=== PATIENT | female | born 1970 | race Caucasian/White ===

== ENCOUNTER → 2016-08-31 | Outpatient (CLI) | payer OTHER ==
--- NOTE | 2016-09-04 12:46 | MM ---
Reason for exam: screening (asymptomatic). Last mammogram was performed 1 year and 5 months ago. History: Patient is postmenopausal. Took hormonal contraceptives for 3 years beginning at age 25. Physical Findings: A clinical breast exam by your physician is recommended on an annual basis and results should be correlated with mammographic findings. MG 3D Screening Mammo W/Cad Bilateral CC and MLO view(s) were taken. Prior study comparison: April 09, 2015, bilateral MG screening mammo w CAD. September 24, 2013, CAD bilateral diagnostic mammogram. The breast tissue is heterogeneously dense. This may lower the sensitivity of mammography. Finding: There is a 8.1 mm equal round mass in the right breast, 5.4 cm from nipple. No significant changes in finding since April 09, 2015 and September 24, 2013. ASSESSMENT: Incomplete: need additional imaging evaluation, BI-RAD 0 RECOMMENDATION: Ultrasound of the right breast. [facility] will attempt to contact patient to return for ultrasound.
== END | disposition home or self-care (01) ==
LOC: RADMAMWWP 10:10
PROVIDERS: ATTEND Family Medicine
DX: Z12.31 Encounter for screening mammogram for malignant neoplasm of breast (principal)
CPT/HCPCS: 77063; G0202

== ENCOUNTER → 2016-09-13 | Outpatient (CLI) | payer OTHER ==
--- NOTE | 2016-09-13 10:00 | USB ---
Reason for exam: additional evaluation requested from abnormal screening. History: Patient is postmenopausal. Took hormonal contraceptives for 3 years beginning at age 25. Physical Findings: Nurse Summary: bilateral breast tenderness with exam, all soft, nodular, movable (nurse ts). US Breast Workup Limited RT Right breast ultrasound demonstrates three oval, cystic lesions measuring 1.6 x 1.6 x 1.2cm at 9 o'clock, 0.9 x 1.1 x 0.5cm at 10 o'clock and 0.7 x 0.5 x 0.5cm at 10 o'clock. All benign and compatible with the mammographic finding. These results were verbally communicated with the patient and result sheet given to the patient on 09/13/16. ASSESSMENT: Benign, BI-RAD 2 RECOMMENDATION: Return to routine screening mammogram schedule for both breasts.
== END | disposition home or self-care (01) ==
LOC: RADUSWWP 08:53
PROVIDERS: ATTEND Family Medicine
DX: R92.8 Other abnormal and inconclusive findings on diagnostic imaging of breast (principal)

== ENCOUNTER → 2017-04-24 | Outpatient (CLI) | payer OTHER ==
--- NOTE | 2017-04-24 14:11 | CT ---
EXAMINATION TYPE: CT abdomen pelvis w con DATE OF EXAM: 04/24/2017 HISTORY: Upper abdominal pain CT DLP: 1404mGycm Automated Exposure Control for Dose Reduction was Utilized. CONTRAST: CT scan of the abdomen and pelvis is performed with IV Contrast, patient injected with 100 mL of Omni paque 300. COMPARISON: 10/16/2013 FINDINGS: LUNG BASES: Bibasilar subsegmental dependent atelectasis is present.. LIVER/GB: The liver contains a single 3 mm hypoattenuated hepatic lesion that is too small to accurat hyacinth characterize within the inferior right hepatic lobe on series 3 image 28 in segment 5. Remainder the hepatic parenchyma enhances homogeneously. No ductal dilatation. Gallbladder surgically absent wi th cholecystectomy clips in the gallbladder fossa. No common bile duct dilatation.. PANCREAS: The pancreas is of normal enhancement and morphology without ductal dilatation. Few areas o f focal fat are seen within the inferior hepatic parenchymal body. SPLEEN: Spleen is unremarkable in morphology. ADRENALS: Adrenal glands are symmetric and unremarkable. KIDNEYS: Kidneys enhance symmetrically. No evidence of hydronephrosis. BOWEL: Appendix is within normal limits of size and partially air-filled. UTERUS/ADNEXA: Uterus is surgically absent. Surgical clips are seen around the right adnexa and there is redemonstration of numerous follicles within the right ovary as seen on the prior exam of 10/17/19 14. LYMPH NODES: No greater than 1cm abdominal or pelvic lymph nodes are appreciated. OSSEOUS STRUCTURES: Acetabular sclerotic bone island is unchanged from the prior of 2013 on the right . Minimal degenerative changes of the lower thoracic spine are noted. OTHER: Minimal atherosclerotic changes are seen of the abdominal aorta and its branches. IMPRESSION: 1. No CT finding is seen to account for patient's clinical symptoms. 2. Numerous right ovarian follicles, as seen on the prior exam of 2013. 3. Too small to accurately characterize single hypoattenuated 3 mm hepatic lesion.
== END | disposition home or self-care (01) ==
LOC: RADCTMAIN 12:50
PROVIDERS: ATTEND Surgery Plastic and Reconstructive Surgery
DX: K76.9 Liver disease, unspecified (principal); K86.1 Other chronic pancreatitis
CPT/HCPCS: 74177; Q9967

== ENCOUNTER → 2017-05-24 | Outpatient (CLI) | payer OTHER ==
[2017-05-24 14:27] LABS: CH 33.3; CHCM 33.5; HCT 48.1 % (34.0-46.0); HDW 2.15; HGB 15.8 gm/dL (11.4-16.0); MCH 32.9 pg (25.0-35.0); MCHC 32.9 g/dL (31.0-37.0); MCV 99.7 fL (80.0-100.0); Mean Platelet Volume 8.4; RBC 4.82 m/uL (3.80-5.40); RDW 13.3 % (11.5-15.5); WBC 15.8 k/uL (3.8-10.6)
== END | disposition home or self-care (01) ==
LOC: LABPAT 13:49
PROVIDERS: ATTEND Surgery Plastic and Reconstructive Surgery
DX: Z01.812 Encounter for preprocedural laboratory examination (principal); K44.9 Diaphragmatic hernia without obstruction or gangrene
CPT/HCPCS: 36415; 85027

== ENCOUNTER → 2017-06-08 | Outpatient (CLI) | payer OTHER ==
[~2017-06-08] MED LIST: DEXAMETHASONE SOD PHOSPHATE 10 MG/ML 1 ML VIAL IV ONE; SODIUM CHLORIDE 0.9% 500 ML in EMPTY BAG 1 BAG IV PRN
[2017-06-08 09:59] VITALS: BP 105/63; PULSE 83; RESP 15; TEMP 97.9
== END | disposition home or self-care (01) ==
LOC: PROCWHC3 09:23
PROVIDERS: ATTEND Surgery Plastic and Reconstructive Surgery
DX: L50.0 Allergic urticaria (principal)
CPT/HCPCS: 96374; J1100

== ENCOUNTER → 2018-05-22 | Outpatient (CLI) | payer OTHER ==
[2018-05-22 11:28] LABS: ALT 20 U/L (9-52); AST 16 U/L (14-36); Albumin 4.3 g/dL (3.5-5.0); Alkaline Phosphatase 52 U/L (38-126); Anion Gap 9 mmol/L; Blood Urea Nitrogen 7 mg/dL (7-17); Calcium 9.4 mg/dL (8.4-10.2); Carbon Dioxide 23 mmol/L (22-30); Chloride 107 mmol/L (98-107); Cholesterol 144 mg/dL (<200); Glucose 113 mg/dL (74-99); HDL Cholesterol 30 mg/dL (40-60); LDL Cholesterol,Calculated 96 mg/dL (0-99); Potassium 4.3 mmol/L (3.5-5.1); Sodium 139 mmol/L (137-145); Total Bilirubin 0.3 mg/dL (0.2-1.3); Total Protein 7.4 g/dL (6.3-8.2); Triglycerides 92 mg/dL (<150)
[2018-05-22 12:23] LABS: Basophils % (A) 0 %; Eosinophils # (A) 0.1 k/uL (0-0.7); Eosinophils % (A) 1 %; HCT 47.1 % (34.0-46.0); HGB 15.5 gm/dL (11.4-16.0); Lymphocytes # (A) 2.8 k/uL (1.0-4.8); Lymphocytes % (A) 32 %; MCHC 32.8 g/dL (31.0-37.0); MCV 97.5 fL (80.0-100.0); Mean Platelet Volume 8.1; Monocytes # (A) 0.5 k/uL (0-1.0); Monocytes % (A) 5 %; Neutrophils # (A) 5.1 k/uL (1.3-7.7); Neutrophils % (A) 60 %; Platelet Count 282 k/uL (150-450); RBC 4.84 m/uL (3.80-5.40); RDW 11.8 % (11.5-15.5); WBC 8.5 k/uL (3.8-10.6)
--- NOTE | 2018-05-22 14:27 | MM ---
Reason for exam: screening (asymptomatic). Last mammogram was performed 1 year and 9 months ago. History: Patient is postmenopausal. Took hormonal contraceptives for 3 years beginning at age 25. Physical Findings: A clinical breast exam by your physician is recommended on an annual basis and results should be correlated with mammographic findings. MG 3D Screening Mammo W/Cad Bilateral CC and MLO view(s) were taken. Prior study comparison: August 31, 2016, bilateral MG 3d screening mammo w/cad. April 09, 2015, bilateral MG screening mammo w CAD. Finding: There is a 30 mm circumscribed round mass in the upper quadrant, middle position of the left breast and a second 14mm round lesion posterior left breast upper aspect. There is a chronic nodularity bilaterally. Increase in size since August 31, 2016 and April 09, 2015. ASSESSMENT: Incomplete: need additional imaging evaluation, BI-RAD 0 RECOMMENDATION: Ultrasound of the left breast. [facility] will attempt to contact patient to return for ultrasound. NIKO
== END | disposition home or self-care (01) ==
LOC: RADMAMWWP 09:35
PROVIDERS: ATTEND Family Medicine
DX: Z12.31 Encounter for screening mammogram for malignant neoplasm of breast (principal); Z13.1 Encounter for screening for diabetes mellitus; Z13.0 Encounter for screening for diseases of the blood and blood-forming organs and certain disorders involving the immune mechanism; Z13.220 Encounter for screening for lipoid disorders
CPT/HCPCS: 36415; 77063; 77067; 80053; 80061; 84443; 85025

== ENCOUNTER → 2018-06-07 | Outpatient (CLI) | payer OTHER ==
--- NOTE | 2018-06-07 09:58 | USB ---
Reason for exam: additional evaluation requested from abnormal screening. History: Patient is postmenopausal. Took hormonal contraceptives for 3 years beginning at age 25. Physical Findings: Nurse Summary: left breast palpabled 12 o'clock/1 o'clock, 1 x 2cm, 2 x 2cm, all soft, movable (nurse ts). US Breast Workup Limited LT Left limited breast ultrasound including focal area of concern, retroareolar and axilla demonstrates a 2.0 x 0.7 x 1.8cm oval, cystic lesion at 12 o'clock BB, a 1.4 x 0.5 x 1.3cm mixed, vascular cluster at 1 o'clock for which a 6 month follow up is recommended and a 1.3 x 0.7 x 1.2cm oval, cystic lesion at 3 o'clock. Multiple cystic areas visualized. These results were verbally communicated with the patient and result sheet given to the patient on 06/07/18. ASSESSMENT: Probably benign, BI-RAD 3 RECOMMENDATION: Follow-up diagnostic mammogram of the left breast in 6 months.
== END ==
LOC: RADUSWWP 08:49
PROVIDERS: ATTEND Family Medicine
DX: R92.8 Other abnormal and inconclusive findings on diagnostic imaging of breast (principal)

== ENCOUNTER → 2018-11-20 | Outpatient (CLI) | payer OTHER ==
--- NOTE | 2018-11-20 11:26 | MM ---
Reason for exam: follow-up at short interval from prior study. Last mammogram was performed 6 months ago. History: Patient is postmenopausal. Family history of breast cancer in paternal aunt at age 50. Took hormonal contraceptives for 3 years beginning at age 25. Physical Findings: Nurse Summary: 1 x 1.5cm nodule in the left breast 1 o'clock and 2 o'clock (nurse ts). MG 3D Diag Mammo W/Cad LT CC and MLO view(s) were taken of the left breast. Prior study comparison: May 22, 2018, bilateral MG 3d screening mammo w/cad. August 31, 2016, bilateral MG 3d screening mammo w/cad. Finding #1: There are multiple masses in the left breast. Finding #2: There are typically benign calcifications in the left breast. These results were verbally communicated with the patient and result sheet given to the patient on 11/20/18. ASSESSMENT: Incomplete: need additional imaging evaluation, BI-RAD 0 RECOMMENDATION: Ultrasound of the left breast.
--- NOTE | 2018-11-20 11:29 | USB ---
Reason for exam: additional evaluation requested from abnormal screening. History: Patient is postmenopausal. Family history of breast cancer in paternal aunt at age 50. Took hormonal contraceptives for 3 years beginning at age 25. US Breast Limited LT Left limited breast ultrasound including focal area of concern, retroareolar and axilla demonstrates a 2.4 x 1.0 x 2.3cm oval, cystic lesion at 12 o'clock, a 1.3 x 0.4 x 1.2cm cystic cluster at 1 o'clock and a 1.7 x 0.9 x 1.5cm oval, cystic lesion at 2 o'clock BB. Multiple cystic area visualized. Lymph nodes visualized in axilla. These results were verbally communicated with the patient and result sheet given to the patient on 11/20/18. ASSESSMENT: Probably benign, BI-RAD 3 RECOMMENDATION: Follow-up diagnostic mammogram of both breasts in 6 months.
== END | disposition home or self-care (01) ==
LOC: RADMAMWWP 09:31
PROVIDERS: ATTEND Family Medicine
DX: R92.8 Other abnormal and inconclusive findings on diagnostic imaging of breast (principal)
CPT/HCPCS: 77061; 77065

== ENCOUNTER → 2019-01-08 | Outpatient (CLI) | payer OTHER ==
[2019-01-08 15:30] VITALS: BP 108/69; PULSE 69; RESP 18; TEMP 98.3; BMI 25.7
--- NOTE | 2019-01-08 15:49 | P.GSHP ---
History of Present Illness H&P Date: 01/08/19 Chief Complaint: lump in left breast Dianna is a 48-year-old white female with a known history of fibrocystic breast disease. Her last bilateral mammogram was in May 2018. At that time there was a 30 mm round mass in the upper quadrant middle position of the left breast, and a second 14 mm round lesion posterior left breast upper aspect. There was chronic nodularity bilaterally. The patient was recommended to undergo an ultrasound of her left breast. Ultrasound of the left breast at that time revealed multiple cystic lesions felt to be most likely benign and repeat mammogram of the left breast in 6 months was recommended. In June 2018 she had a 2 cm cystic lesion at 12:00, 1.4 cm mixed cluster at 1:00 for which six- month follow-up was recommended, and a 1.3 cm cystic lesion at 3:00. The patient had a repeat left breast mammogram performed in November 2018. This revealed multiple masses in the left breast and an ultrasound was recommended. The patient then underwent an ultrasound which revealed a 2.4 cm cystic lesion at 12:00, 1.3 cm cystic cluster at 1:00, and 1.7 cm cystic lesion at 2:00. The results were felt to be probably benign BIRADS 3 and follow-up diagnostic mammogram of both breasts in 6 months was recommended. The patient continues to feel nodularity in the left breast. The patient states that the nodules in her breast have been persistent they do not come and go. She has never had any aspirated. She experiences pain with the nodules. She does not feel any nodules in the left breast. The patient drinks coffee about 5 cups/day. She smokes less than a pack of cigarettes per day. She is not exposed to secondhand smoke. She does not eat chocolate on a regular basis. Family history: 1. paternal aunt: uterine caner Hormonal history: Menarche: 14 , bresat fed: yes, first born at 23 menopause: hysterectomy 11 years ago, took one ovary, done for bleeding the remaining one has cyst BCP: 2 years hormones: none Past surgical history: 1. Hysterectomy with one ovary removed 2. tonsils and Adenoids Medical history: 1. Hiatal hernia 2. Restless leg syndrome 3. Arthritis 4. Fibromyalgia Social History: smoke: 26 years alcohol: none drugs: none - Constitutional Constitutional: Denies chills, Denies fever - EENT Eyes: denies blurred vision, denies pain Ears: deny: decreased hearing, tinnitus Ears, nose, mouth and throat: Reports headache, Denies sore throat - Breasts Breasts: bilateral: as per HPI - Cardiovascular Cardiovascular: Denies chest pain, Denies shortness of breath - Respiratory Comment: smoker - Gastrointestinal Gastrointestinal: Denies abdominal pain, Denies diarrhea, Denies nausea, Denies vomiting - Genitourinary (Female) Genitourinary: Denies dysuria, Denies hematuria - Menstruation Menstruation: Reports post hysterectomy - Musculoskeletal Musculoskeletal: Reports myalgias - Integumentary Integumentary: Denies pruritus, Denies rash - Neurological Neurological: Denies numbness, Denies weakness - Psychiatric Psychiatric: Reports depression, Denies anxiety - Endocrine Endocrine: Reports fatigue, Denies weight change - Hematologic/Lymphatic Comment: none - Allergic/Immunologic Allergic/Immunologic: Reports seasonal allergies Past Medical History Past Medical History: GERD/Reflux Additional Past Medical History / Comment(s): HIATAL HERNIA History of Any Multi-Drug Resistant Organisms: None Reported Past Surgical History: Adenoidectomy, Cholecystectomy, Hysterectomy, Tonsillectomy, Tubal Ligation, Uterine Ablation Additional Past Surgical History / Comment(s): EGD Past Anesthesia/Blood Transfusion Reactions: No Reported Reaction Smoking Status: Never smoker - Past Family History Sister(s) Family Medical History: Cancer Mother Family Medical History: No Reported History Medications and Allergies Home Medications Medication Instructions Recorded Confirmed Type Citalopram Hydrobromide [CeleXA] 40 mg PO HS 05/15/17 01/08/19 History lamoTRIgine [LaMICtal] 100 mg PO HS 05/15/17 01/08/19 History rOPINIRole HCL 0.5 mg PO HS 05/15/17 01/08/19 History Allergies Allergy/AdvReac Type Severity Reaction Status Date / Time No Known Allergies Allergy Verified 01/08/19 15:18 Surgical - Exam BMI 25.7 - General well developed, well nourished, no distress - Eyes normal ocular movement - ENT no hearing loss, no congestion - Neck no masses, trachea midline - Respiratory normal respiratory effort, clear to auscultation - Cardiovascular Rhythm: regular Heart Sounds: normal: S1, S2 - Abdomen Abdomen: soft, non tender, no guarding, no rigid, no rebound - Integumentary normal turgor - Neurologic no disoriented, no combative - Musculoskeletal normal gait, normal posture - Psychiatric oriented to time, oriented to person, oriented to place, speech is normal, memory intact breast exam: Right breast: Multi-positional exam dense breast with fibrocystic changes, no discrete mass Right axilla: No adenopathy of concern Left breast: Dense breast with fibrocystic change, increased nodularity at 1 to 2 o'clock position felt to be a cystic cluster painful to palpation Left axilla: No adenopathy of concern Results mammogram and ultrasound results reviewed Assessment and Plan Assessment: Impression: 1. Hiatal hernia 2. Restless leg syndrome 3. Arthritis 4. Fibromyalgia 5. Mastodynia 6. Fibrocystic breast changes 7. Probable cystic cluster upper outer quadrant left breast I discussed with Dianna decreasing her caffeine intake, and stopping smoking. We have discussed that both of these things will aggravate fibrocystic breast disease. We've also discussed possible ultrasound-guided aspiration of the cystic lesions that are present as I cannot feel any well enough to aspirate otherwise. At this time she is going to consider decreasing her caffeine and nicotine intake. She does not wish for any needle aspiration of cysts. She is recommended to have repeat bilateral mammogram in 6 months time with left breast ultrasound as well. Plan: 1. Encouraged to stop caffeine and nicotine intake 2. Patient given option of needle aspiration of cystic lesions wishes to forego this at the present time 3. Repeat bilateral mammogram and left breast ultrasound in 6 months time with physician exam at that time CC: Carolyn Alfred N.P., Dr. Del Real
== END | disposition home or self-care (01) ==
LOC: WWCWWP 14:52
PROVIDERS: ATTEND Surgery
DX: Z53.9 Procedure and treatment not carried out, unspecified reason (principal)

== ENCOUNTER → 2019-05-22 | Outpatient (CLI) | payer OTHER ==
--- NOTE | 2019-05-23 10:12 | MM ---
Reason for exam: follow-up at short interval from prior study. Last mammogram was performed 6 months ago. History: Patient is postmenopausal. Family history of breast cancer in maternal cousin and breast cancer in paternal aunt at age 50. Took hormonal contraceptives for 3 years beginning at age 25. Physical Findings: Nurse Summary: 1cm nodule in the right breast at 11 o'clock, a 1.5cm nodule in the left breast at 12 o'clock, a 1cm nodule in the left breast at 12 o'clock and a 1cm nodule in the left breast at 2 o'clock (nurse mj). MG 3D Diag Mammo W/Cad JOLLY Bilateral CC and MLO view(s) were taken. Prior study comparison: November 20, 2018, left breast MG 3d diag mammo w/cad LT. May 22, 2018, bilateral MG 3d screening mammo w/cad. August 31, 2016, bilateral MG 3d screening mammo w/cad. April 09, 2015, bilateral MG screening mammo w CAD. September 24, 2013, CAD bilateral diagnostic mammogram. August 23, 2012, CAD bilateral diagnostic mammogram. The breast tissue is heterogeneously dense. This may lower the sensitivity of mammography. There are numerous bilateral round oval circumscribed masses predominantly of the upper outer quadrants bilaterally. The fluxuate is size in comparison to priors and mammographically are most compatible with cysts. Ultrasound will be performed of the left for follow up and right upper outer quadrant for increased size of the right upper outer quadrant masses. These results were verbally communicated with the patient and result sheet given to the patient on 05/22/19. ASSESSMENT: Incomplete: need additional imaging evaluation, BI-RAD 0 RECOMMENDATION: Ultrasound of both breasts.
--- NOTE | 2019-05-23 10:41 | USB ---
Reason for exam: additional evaluation requested from abnormal screening. History: Patient is postmenopausal. Family history of breast cancer in maternal cousin and breast cancer in paternal aunt at age 50. Took hormonal contraceptives for 3 years beginning at age 25. US Breast Limited BILAT Right limited breast ultrasound including focal area of concern, retroareolar and axilla demonstrates a 1.9 x 1.7 x 1.2cm oval, cystic lesion at 12 o'clock, a 0.4 x 0.4 x 0.3cm oval, complex, cystic lesion at 12 o'clock BB likely complicated cyst, 6 month follow up, a 2.7 x 2.6 x 1.4cm oval, cystic lesion at 9 o'clock, a 0.4 x 0.6 x 0.5cm oval, complex, cystic lesion at 9 o'clock likely complicated deep cyst, 6 month follow up recommended and a 2.0 x 1.7 x 1.3cm oval, cystic lesion at 10 o'clock. Left complete breast ultrasound includes all four quadrants, the retroareolar region and axilla. Finding demonstrates a 2.4 x 2.5 x 1.3cm oval, cystic lesion at 12 o'clock, a 0.9 x 1.3 x 0.9cm oval, cystic lesion at 2 o'clock, a 0.6 x 0.7 x 0.3cm oval, complex, cystic lesion at 2 o'clock likely complicated cyst, 6 month follow up, a 0.3 x 0.3 x 0.2cm oval, complex, cystic lesion at 5 o'clock likely complicated cyst, 6 month follow up, a duct at 7 o'clock, a 1.3 x 1.9 x 1.0cm lymph node at the axilla and a 1.6 x 1.6 x 1.0cm oval, cystic lesion at 3 o'clock. These results were verbally communicated with the patient and result sheet given to the patient on 05/22/19. ASSESSMENT: Probably benign, BI-RAD 3 RECOMMENDATION: Ultrasound of both breasts in 6 months.
== END | disposition home or self-care (01) ==
LOC: RADMAMWWP 13:29
PROVIDERS: ATTEND Surgery
DX: R92.8 Other abnormal and inconclusive findings on diagnostic imaging of breast (principal)
CPT/HCPCS: 77062; 77066

== ENCOUNTER → 2019-12-24 | Outpatient (CLI) | payer OTHER ==
--- NOTE | 2019-12-24 11:24 | USB ---
Reason for exam: follow-up at short interval from prior study. History: Patient is postmenopausal. Family history of breast cancer in maternal cousin and breast cancer in paternal aunt at age 50. Took hormonal contraceptives for 3 years beginning at age 25. Physical Findings: Nurse Summary: Patient complains of pain, bilateral pain comes and goes for years, worse on the left breast. Palpable movable lump left breast 2 o'clock, right breast 9 o'clock, nodular bilaterally (nurse TM). US Breast Limited BILAT Right limited breast ultrasound including focal area of concern, retroareolar and axilla demonstrates a 5 x 4 x 6mm oval, mixed lesion at 9 o'clock stable or decreased in size, likely debris filled cyst, a 36 x 12 x 23mm oval, cystic lesion at 9 o'clock BB and a 3 x 2 x 3mm oval, cystic lesion at 12 o'clock. Right limited breast ultrasound including focal area of concern, retroareolar and axilla demonstrates a 9 x 8 x 10mm oval, cystic lesion at 2 o'clock, a 9 x 5 x 7mm lobular, cystic lesion at 3 o'clock and a 6mm oval lymph node at the axilla. Fibrocystic change. These results were verbally communicated with the patient and result sheet given to the patient on 12/24/19. ASSESSMENT: Benign, BI-RAD 2 RECOMMENDATION: Follow-up diagnostic mammogram of both breasts in 5 months. Back on schedule for May 2020.
== END | disposition home or self-care (01) ==
LOC: RADUSWWP 09:41
PROVIDERS: ATTEND Surgery
DX: R92.8 Other abnormal and inconclusive findings on diagnostic imaging of breast (principal)

== ENCOUNTER → 2020-01-01 | Outpatient (CLI) | payer OTHER ==
[2020-01-01 09:55] VITALS: BP 108/70; PULSE 75; RESP 18; TEMP 97.9
--- NOTE | 2020-01-01 10:29 | P.PN ---
Subjective Progress Note Date: 01/01/20 Principal diagnosis: fibrocystic breast disease Dianna is a 48-year-old white female initially seen in January 2019 with nodularity in her left breast. Radiographs at that time revealed no masses in the left breast and ultrasound was recommended. The patient underwent an ul trasound which revealed 2.4 cm cystic lesion at 12:00, 1.3 cm cystic cluster at 1:00, and 1.7 cm cystic lesion at 2:00. These results were felt to be probably benign BIRADS 3 and follow-up diagnostic mammogram of both breasts in 6 months time was recommended. The patient continued to feel nodularity in both breasts, however the left side was worse than the right. The nodularity was smooth in nature there were no spiculated masses or lesions. The location of the nodularity was greatest in the upper outer quadrant. This had intermittently been occurring for approximately 20 years. It had gotten progressively worse over the last few years. The patient had a bilateral mammogram performed on 05/1919 this revealed numerous bilateral round or oval circumscribed masses predominantly in the upper outer quadrants bilaterally. Fluctuation in size was noted compared to prior mammograms and felt to be most compatible with cyst. Ultrasound of both breasts was recommended. Right breast ultrasound done on 05-22-20 revelaed 1.9 cm cystic lesion at 12:00, a 0.4 cm complex cystic lesion at 12:00, 6 month follow-up was recommended for this a 2.7 cm cystic lesion at 9:00, 8.4 cm cystic complex lesion at 9:00 likely complicated deep cystic smooth follow-up recommended 2 cm of the cystic lesion at 10:00 Left breast ultrasound 05-22-20 reveald 2.4 cm cystic lesion at 12:00 0.9 cm cystic lesion at 2:00 0.66 cm complex cystic lesion at 2:00 6 month follow-up recommended 0.3 cm complex cystic lesion at 5:00 6 month follow-up recommended a 1.3 x 1.9 cm lymph node in the axilla and a 1.6 x 1 cm cystic lesion at 3:00 the findings on the left breast for which follow-up was recommended including those at 5 and 6:00 overall bilateral ultrasound in 6 months is recommended Her repeat bilateral ultrasound was done on 12-24-19 This revealed fibrocystic change and repeat mammogram of both breast in 5 months recommended. Patient experiences discomfort in her breast with pressure. The discomfort is in the upper outer quadrant areas greater on the left side. This has been ongoing since her last exam, it has not changed. She does not know anything that makes it better or worse. Complain of any new lumps masses or nodules in her breast. She does not complain of any nipple discharge or skin changes. She has no recent history of trauma or infection of the breast. There is nothing she is aware of that has made it worse. She did have a hysterectomy approximately 11 years ago and one ovary was removed. She has one remaining ovary. She may well be perimenopausal at this time. The patient had a bilateral mammogram performed on 05/1919 this revealed numerous bilateral round or oval circumscribed masses predominantly in the upper outer quadrants bilaterally. Fluctuation in size was noted compared to prior mammograms and felt to be most compatible with cyst. Ultrasound of both breasts was recommended. Caffeine: down to 3 cups of coffee/day from 5 cups Nicotine: Approximately a pack per day she is not exposed to secondhand smoke Theophylline: Decreased chocolate intake Hormones: She is not taking any hormones but may well be perimenopausal; FSH level from June 2019 was 11.2 and LH level .3 (postmenopausal female FSH level 16.7-113.6 postmenopausal luteinizing hormone level 15.9-54) Family history: 1. paternal aunt: uterine caner Hormonal history: Menarche: 14 , bresat fed: yes, first born at 23 menopause: hysterectomy 11 years ago, took one ovary, done for bleeding the remaining one has cyst BCP: 2 years hormones: none Past surgical history: 1. Hysterectomy with one ovary removed 2. tonsils and Adenoids Medical history: 1. Hiatal hernia 2. Restless leg syndrome 3. Arthritis 4. Fibromyalgia 5. fatigue Social History: smoke: 27 years alcohol: none drugs: none - Constitutional Constitutional: Denies chills, Denies fever - EENT Eyes: denies blurred vision, denies pain Ears: deny: decreased hearing, tinnitus Ears, nose, mouth and throat: Reports headache, Denies sore throat - Breasts Breasts: bilateral: as per HPI - Cardiovascular Cardiovascular: Denies chest pain, Denies shortness of breath - Respiratory Comment: smoker - Gastrointestinal Gastrointestinal: Denies abdominal pain, Denies diarrhea, Denies nausea, Denies vomiting - Genitourinary (Female) Genitourinary: Denies dysuria, Denies hematuria - Menstruation Menstruation: Reports post hysterectomy - Musculoskeletal Musculoskeletal: Reports myalgias - Integumentary Integumentary: Denies pruritus, Denies rash - Neurological Neurological: Denies numbness, Denies weakness - Psychiatric Psychiatric: Reports depression, Denies anxiety - Endocrine Endocrine: Reports fatigue, Denies weight change - Hematologic/Lymphatic Comment: none - Allergic/Immunologic Allergic/Immunologic: Reports seasonal allergies Objective - Vital Signs Vital signs: Vital Signs Temp 97.9 F 01/01/20 09:52 Pulse 75 01/01/20 09:52 Resp 18 01/01/20 09:52 BP 108/70 01/01/20 09:52 Pulse Ox 98 01/01/20 09:52 Intake & Output 12/31/19 01/01/20 01/01/20 18:59 06:59 18:59 Weight 69.853 kg - Constitutional General appearance: Present: average body habitus - EENT Eyes: Present: EOMI ENT: Present: hearing grossly normal - Neck Neck: Present: normal ROM - Musculoskeletal Musculoskeletal: Present: gait normal - Psychiatric Psychiatric: Present: A&O x's 3, appropriate affect, intact judgment & insight - Additional findings Additional findings: BREAST : patient refused exam today Assessment and Plan Assessment: Impression: 1. Fibrocystic breast changes as her ultrasound results and per prior exams 2. Stable mastodynia 3. Patient consumes caffeine/is a smoker Plan: 1. Repeat bilateral mammogram; 5 months physician exam at that time 2. Again have counseled patient regarding caffeine and nicotine exposure patient will try to modify lifestyle CC: Dr. Del Real. Carolyn Alfred encounter 15 minutes, > 50% of time in planning and counselling
== END | disposition home or self-care (01) ==
LOC: WWCWWP 09:45
PROVIDERS: ATTEND Surgery
DX: R53.82 Chronic fatigue, unspecified (principal)
CPT/HCPCS: 36415; 84439; 84443; 84481

== ENCOUNTER → 2022-02-24 | Outpatient (CLI) | payer OTHER ==
--- NOTE | 2022-02-24 10:00 | MM ---
Reason for Exam: Follow-up at short interval from prior study. Last mammogram was performed 2 year(s) and 9 month(s) ago. Patient History: Menarche at age 15. First Full-Term at age 25. Left ovary removed at age 35. Hysterectomy at age 35. Postmenopausal. Hormonal Contraceptives, starting at age 25 for 3 years. Maternal cousin had breast cancer. Paternal aunt had breast cancer, age 50. Risk Values: Gracia 5 year model risk: 0.8%. NCI Lifetime model risk: 8.2%. Prior Study Comparison: 10/04/2001 Bilateral Diagnostic Mammogram, [facility]. 10/04/2001 Left Diagnostic Ultrasound, [facility]. 04/13/2009 Bilateral Diagnostic Mammogram, [facility]. 04/13/2009 Left Diagnostic Ultrasound, [facility]. 09/16/2009 Left Diagnostic Ultrasound, [facility]. 08/23/2012 Bilateral Diagnostic Mammogram, [facility]. 08/23/2012 Bilateral Diagnostic Ultrasound, [facility]. 03/19/2013 Bilateral Diagnostic Ultrasound, [facility]. 09/24/2013 Bilateral Diagnostic Mammogram, [facility]. 09/24/2013 Bilateral Diagnostic Ultrasound, [facility]. 04/09/2015 Bilateral Screening Mammogram, [facility]. 04/20/2015 Bilateral Diagnostic Ultrasound, [facility]. 08/31/2016 Bilateral Screening Mammogram, [facility]. 09/13/2016 Right Diagnostic Ultrasound, [facility]. 05/22/2018 Bilateral Screening Mammogram, [facility]. 06/07/2018 Left Diagnostic Ultrasound, [facility]. 11/20/2018 Left Diagnostic Mammogram, [facility]. 11/20/2018 Left Diagnostic Ultrasound, [facility]. 05/22/2019 Bilateral Diagnostic Mammogram, [facility]. 05/22/2019 Bilateral Diagnostic Ultrasound, [facility]. 12/24/2019 Bilateral Diagnostic Ultrasound, [facility]. Tissue Density: The breast tissue is heterogeneously dense. This may lower the sensitivity of mammography. Findings: Analyzed By CAD. Multiple masses demonstrated within both breasts which appear increased in size and number from prior examination. These are equal density with round oval circumscribed appearance. With the number and size, these are favored to represent cysts. Overall Assessment: Incomplete: need additional imaging evaluation, BI-RAD 0 Management: Diagnostic Breast Ultrasound of both breasts. A clinical breast exam by your physician is recommended on an annual basis and results should be correlated with mammographic findings. This exam should not preclude additional follow-up of suspicious palpable abnormalities. Results were given to the patient verbally at the time of exam. Electronically signed and approved by: Fausto Eric D.O.
--- NOTE | 2022-02-24 10:37 | USB ---
Reason for Exam: Additional evaluation requested from prior study. Patient History: Menarche at age 15. First Full-Term at age 25. Left ovary removed at age 35. Hysterectomy at age 35. Postmenopausal. Hormonal Contraceptives, starting at age 25 for 3 years. Maternal cousin had breast cancer. Paternal aunt had breast cancer, age 50. Risk Values: Gracia 5 year model risk: 0.8%. NCI Lifetime model risk: 8.2%. Technique: Method: Whole Breast Handheld. Prior Study Comparison: 05/22/2018 Bilateral Screening Mammogram, [facility]. 11/20/2018 Left Diagnostic Mammogram, [facility]. 05/22/2019 Bilateral Diagnostic Mammogram, [facility]. Findings: The whole breast of both breasts, the axilla of both breasts and the retroareolar of both breasts were scanned. A complete US of all four quadrants of both breasts and retro-areolar region were reviewed. Multiple simple appearing cysts demonstrated within both breasts with no internal vascularity or solid component. Examples include a 2.5 x 1.2 x 2.1 cm cyst in the right breast at 2:00 2 cm from the nipple. 3.1 x 0.8 x 2.9 cm cyst in the right breast at 9:00 4 cm from the nipple. 3.5 x 1.2 x 3.0 cm cyst within left breast at 1:00 3 cm from the nipple. Benign-appearing lymph node in the left axilla with cortical thickness of 2 mm. This measures 0.7 cm short axis. Overall Assessment: Benign, BI-RAD 2 Management: Screening Mammogram of both breasts in 1 year. A clinical breast exam by your physician is recommended on an annual basis and results should be correlated with mammographic findings. Electronically signed and approved by: Fausto Eric D.O.
== END | disposition home or self-care (01) ==
LOC: RADMAMWWP 09:21
PROVIDERS: ATTEND Family Medicine
DX: N60.01 Solitary cyst of right breast (principal); Z78.0 Asymptomatic menopausal state; Z80.3 Family history of malignant neoplasm of breast
CPT/HCPCS: 77062; 77066

== ENCOUNTER → 2024-10-06 | Outpatient (CLI) | payer OTHER ==
--- NOTE | 2024-10-06 11:44 | MM ---
Reason for Exam: Screening (asymptomatic). Last mammogram was performed 1 year(s) and 6 month(s) ago. Patient History: Menarche at age 15. First Full-Term at age 25. Left ovary removed at age 35. Hysterectomy at age 35. Postmenopausal. Hormonal Contraceptives, starting at age 25 for 3 years. Maternal cousin had breast cancer at or over age 50. Paternal aunt had breast cancer, age 50. Risk Values: Gracia 5 year model risk: 0.9%. NCI Lifetime model risk: 7.8%. Prior Study Comparison: 11/20/2018 Left Diagnostic Mammogram, [facility]. 05/22/2019 Bilateral Diagnostic Mammogram, [facility]. 02/24/2022 Bilateral MG 3D diag mammo w/cad JOLLY, [facility]. Tissue Density: The breasts are heterogeneously dense, which may obscure small masses. Findings: Analyzed By CAD. Right breast: Stable benign masses. There is no suspicious group of microcalcifications or new suspicious mass. Left breast: Stable benign masses. There is no suspicious group of microcalcifications or new suspicious mass. Right breast: Benign masses redemonstrated. There is no suspicious group of microcalcifications or new suspicious mass. Left breast: Benign masses redemonstrated. There is no suspicious group of microcalcifications or new suspicious mass. Overall Assessment: Benign, BI-RAD 2 Management: Screening Mammogram of both breasts in [address] [facility] will attempt to contact patient to return for supplemental views and ultrasound if indicated. Patient should continue monthly self-breast exams. A clinical breast exam by your physician is recommended on an annual basis. This exam should not preclude additional follow-up of suspicious palpable abnormalities. Note on Gracia scores and lifetime risk: 1. A Gracia score greater than 3% is considered moderate risk. If this is the case, consider specialist referral to assess eligibility for a risk reducing agent. 2. If overall lifetime risk for the development of breast cancer is 20% or higher, the patient may qualify for future screening with alternating mammogram and breast MRI. [facility], , 10/06/2024 11:41 AM. Electronically signed and approved by: Marko Forbes DO
== END | disposition home or self-care (01) ==
LOC: RADMAMWWP 10:35
PROVIDERS: ATTEND Family Medicine
DX: Z12.31 Encounter for screening mammogram for malignant neoplasm of breast (principal); R92.333 Mammographic heterogeneous density, bilateral breasts; Z78.0 Asymptomatic menopausal state; Z80.3 Family history of malignant neoplasm of breast; Z92.0 Personal history of contraception
CPT/HCPCS: 77063; 77067